=== PATIENT | female | born 1940 | race Caucasian/White ===

== ENCOUNTER 2020-08-02 10:33 | Inpatient (IN) | payer BC, OTHER ==
[~2020-08-02] VITALS: Ht 152.4 cm; Wt 73.4 kg
[2020-08-02] MEDS ORDERED: ONDANSETRON HCL 4 MG/2 ML VIAL IV ONE ×3 (10:45→17:15)
[2020-08-02] MEDS ORDERED: MORPHINE SULFATE 4 MG/ML SYR/VIAL IV ONE ×3 (10:45→17:15)
[2020-08-02 11:12] LABS: Basophils # (auto) 0.1 10 ^3/uL (0-0.2); Basophils % (auto) 1.4 % (0.0-2.0); Eosinophils # (auto) 0.1 10 ^3/uL (0-0.8); Eosinophils % (auto) 1.7 % (0.0-7.0); Hematocrit 42.3 % (36.0-46.0); Hemoglobin 14.8 g/dL (12.2-16.2); Lymphocytes # (auto) 1.7 10 ^3/uL (0.4-5.4); Lymphocytes % (auto) 34.7 % (10.0-50.0); Mean Corpuscular Hemoglobin 31.3 pg (28.0-32.0); Mean Corpuscular Volume 89.2 fL (80.0-100.0); Monocytes # (auto) 0.3 10 ^3/uL (0-1.3); Monocytes % (auto) 5.9 % (0.0-12.0); Neutrophils # (auto) 2.7 10 ^3/uL (1.6-8.6); Neutrophils % (auto) 56.3 % (37.0-80.0); Nucleated Red Blood Cells % 0.2 %; Platelet Count (auto) 194 10^3/uL (140-450); Red Blood Cells 4.75 10^6/uL (4.0-5.20); Red Cell Distribution Width 14.1 % (11.8-14.3); White Blood Cell 4.8 10^3/uL (4.4-10.8)
[2020-08-02 11:40] LABS: Albumin 3.8 g/dL (3.4-5.0); Calcium 9.7 mg/dL (8.5-10.1); Potassium 3.6 mmol/L (3.5-5.1)
[2020-08-02 11:45] LABS: BUN/Creatinine Ratio 14.3; Bilirubin, Total 0.7 mg/dL (0.2-1.0); Total Protein 7.9 g/dL (6.4-8.2)
[2020-08-02] MEDS ORDERED: HYDROmorphone HCL 2 MG/ML VL IV ONE (13:00)
[2020-08-02 16:50] LABS: Urine Bacteria FEW /hpf (None Seen); Urine Blood Negative /uL (Negative); Urine Specific Gravity 1.008 (1.001-1.035); Urine WBC <1 /hpf (0 - 5)
[2020-08-02] MEDS ORDERED: NITROGLYCERIN 0.4 MG SL TAB SL PRN (18:00)
[2020-08-02] MEDS ORDERED: MORPHINE SULF INJ 2 MG/ML SYRINGE 1ML IV PRN (18:00)
[2020-08-02] MEDS ORDERED: ONDANSETRON HCL 4 MG/2 ML VIAL IV PRN (18:00)
[2020-08-02] MEDS: HYDROcodone-ACET 5/325MG TAB PO PRN (18:46)
[2020-08-02] MEDS: MORPHINE SULF INJ 2 MG/ML SYRINGE 1ML IV PRN ×2 (19:58→23:55)
[2020-08-02 22:00] VITALS: BP 147/73
[2020-08-02] MEDS: CLINDAMYCIN 600MG IV 50 ML IV SCH (22:37)
[2020-08-03] MEDS: HYDROcodone-ACET 5/325MG TAB PO PRN ×2 (02:31→08:18)
[2020-08-03 05:00] VITALS: BP 129/63
[2020-08-03] MEDS: MORPHINE SULF INJ 2 MG/ML SYRINGE 1ML IV PRN ×2 (05:03→15:14)
[2020-08-03] MEDS: CLINDAMYCIN 600MG IV 50 ML IV SCH ×2 (06:13→15:14)
[2020-08-03 08:00] VITALS: BP 125/80
[2020-08-03 12:00] VITALS: BP 124/53
[2020-08-03] MEDS ORDERED: GABAPENTIN 100 MG CAP PO SCH (14:00)
[2020-08-03] MEDS ORDERED: GAB100C PO (15:34)
[2020-08-03] MEDS ORDERED: CLIN300C8 PO (15:34)
[2020-08-03 16:00] VITALS: BP 148/66
[2020-08-03 16:37] VITALS: BP 148/66
== END 2020-08-03 17:40 | disposition home health service (06) | DRG 603 ==
LOC: ER 10:33 → OVERFLOW 17:58 → CENTRAL 19:35
PROVIDERS: ADMIT Internal Medicine; ATTEND Internal Medicine
DX: L03.115 Cellulitis of right lower limb (principal); G89.29 Other chronic pain; M16.11 Unilateral primary osteoarthritis, right hip; Z80.3 Family history of malignant neoplasm of breast; Z96.651 Presence of right artificial knee joint; Z20.822 Contact with and (suspected) exposure to COVID-19; Z90.10 Acquired absence of unspecified breast and nipple; I10 Essential (primary) hypertension
CPT/HCPCS: 36415; 51702; 73562; 73590; 80053; 81001; 82550; 84550; 85025; 85379; 85652; 86141; 87426; 93971; 96374; 96375; 96376; G0378; J2405; J3490